=== PATIENT | male | born 1960 | race Caucasian/White ===

== ENCOUNTER 2017-04-01 14:27 | Emergency (ER) | payer BC ==
[~2017-04-01 14:27] MED LIST: Iopamidol 370 76% 100 ML VIAL ONE
[2017-04-01 14:56] LABS: #Basophils 0.1 thou/uL (0.0-0.2); #Eosinphils 0.3 thou/uL (0.0-0.7); #Lymphocytes 2.7 thou/uL (1.20-3.40); #Monocytes 1.1 thou/uL (0.11-0.59); #Neutrophils 10.7 thou/uL (1.40-6.50); %Basophils 0.6 % (0.0-1.0); %Lymphocytes 18.2 % (21.0-51.0); %Monocytes 7.5 % (0.0-10.0); Hematocrit 43.6 % (42.0-52.0); Mean Platelet Volume 7.6 fL (7.4-10.4); Red Blood Cell (RBC) Count 4.98 mill/uL (4.70-6.10); White Blood Cell (WBC) Count 14.9 thou/uL (4.8-10.8)
[2017-04-01 15:11] LABS: ALT (SGPT) 34 U/L (8-55); AST (SGOT) 24 U/L (5-34); Alkaline Phosphatase 70 U/L (40-150); Anion Gap 15 mmol/L (10-20); BUN (Urea Nitrogen) 11 mg/dL (8.4-25.7); Bilirubin, Total 0.4 mg/dL (0.2-1.2); Calc. Creatinine Clearance 0 mL/min (70-130); Calcium 9.4 mg/dL (7.8-10.44); Carbon Dioxide 25 mmol/L (22-29); Chloride 105 mmol/L (98-107); Estimated GFR-MDRD 78; Globulin 3.1 g/dL (2.4-3.5); Lipase 16 U/L (8-78); Protein, Total 7.1 g/dL (6.0-8.3)
[2017-04-01] MEDS ORDERED: Ondansetron HCl/PF 4 MG/2 ML Vial ONE (15:27)
[2017-04-01] MEDS ORDERED: Morphine 4 MG/ML Carpuject ONE (15:27)
[2017-04-01] MEDS ORDERED: Piperacillin/Tazobactam 3.375 GM VIAL ONE (16:06)
[2017-04-01] MEDS ORDERED: Sodium Chloride 0.9% 100 ML ONE (16:06)
--- NOTE | 2017-04-01 17:37 | CT ---
CT ABDOMEN AND PELVIS WITH IV CONTRAST: HISTORY: Left flank pain. FINDINGS: The lung bases are clear. Hyperdense stone is present within the dependent portion of the gallbladd er lumen. Each renal collecting system are ureter are decompressed without stone apparent. There are calcifications throughout the arterial structures. The liver is diffusely hypodense. Sma ll cysts arise from the cortex of the kidneys. There is calcification in the arterial structures. Diverticula arise from the left colon and sigmoid colon. Stranding is present within the fat machine try out setter ior to the left lower colon. No free air or free fluid are apparent. IMPRESSION: 1. Inflammation within the left paracolic fat is favored to be related to non-complicated diverticul itis. 2. Cholelithiasis. 3. Atherosclerosis. POS: EDWINA
--- NOTE | 2017-04-01 17:44 | RAD ---
TWO VIEWS OF THE CHEST: 04/01/2017 COMPARISON: 04/24/2010 HISTORY: Left flank pain, dyspnea. FINDINGS: Incompletely imaged cervical spine hardware is present. Heart and mediastinal contours are unremarkable. No pneumothorax, pleural fluid, focal consolidation, or alve olar edema. IMPRESSION: No acute findings. POS: KRISTIEH
[2017-04-01] MEDS ORDERED: Promethazine HCl 25 MG/ML VIAL ONE (18:29)
[2017-04-01] MEDS ORDERED: metroNIDAZOLE 500 MG/100 ML BAG ONE (19:11)
== END 2017-04-01 22:15 | disposition home or self-care (01) ==
LOC: SCSER 14:27
DX: K57.32 Diverticulitis of large intestine without perforation or abscess without bleeding (principal); K59.00 Constipation, unspecified; E78.5 Hyperlipidemia, unspecified; Z79.899 Other long term (current) drug therapy
CPT/HCPCS: 71020; 74177; 80053; 83690; 85025; 87040; 94760; 96361; 96365; 96366; 96367; 96375; J1170; J1956; J2270; J2405; J2543; J2550; J7050

== ENCOUNTER 2017-04-29 08:46 | Outpatient (CLI) | payer BC | END 2017-04-29 08:47 | disposition home or self-care (01) | LOC: BICULT 08:46 | PROVIDERS: ATTEND Family Medicine | DX: K57.92 Diverticulitis of intestine, part unspecified, without perforation or abscess without bleeding (principal); K80.20 Calculus of gallbladder without cholecystitis without obstruction; K76.0 Fatty (change of) liver, not elsewhere classified | CPT/HCPCS: 76700 ==

== ENCOUNTER 2019-02-19 08:45 | Inpatient (IN) | payer BC ==
[2019-02-19 09:35] VITALS: BMI 45.4
[2019-03-03] MEDS ORDERED: Midazolam HCl 2 mg/2 ml Vial ONE (06:21)
[2019-03-03] MEDS ORDERED: Fentanyl 100 MCG/2 ML VIAL ONE ×5 (06:21→10:12)
[2019-03-03] MEDS ORDERED: Tranexamic Acid 1,000 MG/10 ML VIAL ONE (06:21)
[2019-03-03] MEDS ORDERED: Sodium Chloride 0.9% 100 ML ONE (06:21)
[2019-03-03] MEDS ORDERED: HYDROmorphone 0.5 MG/0.5 ML SYRINGE ONE ×2 (06:59→09:14)
[2019-03-03] MEDS ORDERED: Promethazine HCl 25 MG/ML VIAL IM PRN ×3 (07:03→08:24)
[2019-03-03] MEDS ORDERED: Acetaminophen 325 MG TAB PO PRN (07:03)
[2019-03-03] MEDS ORDERED: HYDROcodone/Acetaminophen 10/325 mg Tablet PO PRN ×2 (07:03)
[2019-03-03] MEDS ORDERED: Zolpidem Tartrate 5 MG TAB PO PRN ×2 (07:03→07:17)
[2019-03-03] MEDS ORDERED: Ondansetron PF 4 MG/2 ML Vial IVP PRN ×2 (07:03→07:17)
[2019-03-03] MEDS ORDERED: diphenhydrAMINE 25 MG CAP PO PRN (07:03)
[2019-03-03] MEDS ORDERED: CAFFEINE PO PRN (07:04)
[2019-03-03] MEDS ORDERED: ASPIRIN PO PRN (07:04)
[2019-03-03] MEDS ORDERED: Ropivacaine HCl/PF 250 ML in Premix Bag 1 BAG NERVE BLCK SCH (07:17)
[2019-03-03] MEDS ORDERED: HYDROcodone/Acetaminophen 5/325 mg Tablet PO PRN (07:17)
[2019-03-03] MEDS ORDERED: traMADol HCl 50 MG TAB PO PRN ×2 (07:17)
[2019-03-03] MEDS ORDERED: Ondansetron HCl/PF 4 MG/2 ML Vial IVP PRN (08:24)
[2019-03-03] MEDS ORDERED: PACU-Morphine 4MG/ML VIAL SLOW IVP PRN (08:24)
[2019-03-03] MEDS ORDERED: HYDROmorphone 2 MG/ML VIAL SLOW IVP PRN (08:24)
[2019-03-03] MEDS ORDERED: Promethazine HCl 25 MG/ML VIAL SLOW IVP PRN (08:24)
[2019-03-03] MEDS ORDERED: Bupivacaine HCl 0.5%/Epinephrine 1:200,000/PF 30 ml Vial ONE (08:27)
--- NOTE | 2019-03-03 09:04 | RAD ---
EXAM: 2 views of the left knee HISTORY: Knee arthroplasty COMPARISON: None FINDINGS: No knee effusion is seen. The patient is status post knee arthroplasty without perihardware lucency or fracture. Air in the soft tissues is from recent surgery. IMPRESSION: Status post knee arthroplasty without evidence of complication.
[2019-03-03] MEDS ORDERED: Morphine 4 MG/ML VIAL ONE (10:47)
[2019-03-03] MEDS: Sodium Chloride 0.9% 1,000 ML IV SCH ×2 (11:28→17:52)
[2019-03-03] MEDS: Aspirin 81 mg Enteric Coated Tablet PO SCH ×2 (11:28→20:36)
[2019-03-03] MEDS ORDERED: Ketorolac Tromethamine 30 MG/ML VIAL IVP SCH (12:00)
[2019-03-03] MEDS: Fentanyl 100 MCG/2 ML VIAL IV PRN ×4 (12:59→22:40)
[2019-03-03] MEDS ORDERED: Ketorolac Tromethamine 30 MG/ML VIAL IM SCH (14:00)
[2019-03-03] MEDS: Ketorolac Tromethamine 30 MG/ML VIAL IVP SCH ×2 (14:10→20:36)
--- NOTE | 2019-03-03 15:20 | OP ---
DATE OF PROCEDURE: 03/03/2019 PREOPERATIVE DIAGNOSIS: Degenerative joint disease, left knee. POSTOPERATIVE DIAGNOSIS: Degenerative joint disease, left knee. PROCEDURE PERFORMED: Left total knee arthroplasty using [place] [employer] 6 femur, 6 tibia, 9 mm CS X3 polyethylene, and A35 patella. CAPSULE FILLING MACHINE OPERATOR: Caitlin Garcia PA-C ESTIMATED BLOOD LOSS: Minimal. SPECIMENS: None. DRAINS: None. COMPLICATIONS: None. PROCEDURE IN DETAIL: After informed consent was obtained in the preoperative holding area, the patient was taken to the operative suite where general anesthesia was induced. Once adequate level of general anesthesia was obtained, the patient was positioned and a well-padded tourniquet was placed around the left proximal thigh. The left lower extremity was then prepped and draped in the usual sterile fashion. Prior to exsanguination, a time-out was called and all members of the surgical team agreed upon site, surgeon, and patient. The extremity was then exsanguinated and the tourniquet was raised. A midline longitudinal incision was then made directly over the patella extending 2 fingerbreadths above the superior pole of the patella and 2 fingerbreadths inferior to the inferior patellar pole of the patella. Deeper subcutaneous layers were dissected sharply and local bleeding was controlled with Bovie electrocautery. A quad tendon longitudinal split was then made sharply and a median parapatellar arthrotomy was carried out both sharp and with Bovie electrocautery, carried down to 1 fingerbreadth medial to the tibial tubercle. The knee was then placed into flexion and the patella was everted nicely, and a copious fat pad ectomy was performed allowing for greater exposure of the tibia. The computer-assisted distal femoral fiducial was then placed and pinned firmly, and the distal femoral cutting guide was pinned firmly into place. The oscillating saw was then used to remove the appropriate amount of bone. The 4-in-1 cutting block was then placed on the distal femur and the oscillating saw was used to remove the appropriate amount of bone off the anterior, posterior, and chamfer cuts. After completion of bone cuts, the anterior cruciate ligament was resected sharply and the posterior cruciate ligament retractor was placed and the tibia was subluxed for better exposure. Partial meniscectomies were carried out, and the tibial computer-assisted fiducial was pinned, and the cutting guide was placed. Oscillating saw was then used to remove the bone, with Hohmann retractors used to take care and protect the collateral ligaments. After the tibial resection was performed, a laminar kiln pusher was placed in between the freshened bone cuts. The knee placed at 90 degrees and further bilateral meniscectomies were carried out, and the curved osteotome and curettage were used to remove any excess bone spurs in the posterior compartment. The trial femoral component, tibial baseplate were placed with the appropriate polyethylene trial insert with an appropriate polyethylene spacer and patellar button. The knee was taken through full range of motion with flexion and extension from 0 to 90 degrees and patellar broach squarely in the trochlea without any squinting or subluxation noted. The knee was also stable to varus and valgus stressing at 0, 15, 45, and 90 degrees of flexion. The drawer was negative. All trial components were then removed and the keel punch was used to provide the appropriate defect in the tibia with a mallet. The freshened bone cuts were copiously irrigated with pulsatile lavage of about 1.5 L to remove all excess debris. The freshened bone cuts were then dried with suction and lap sponge. The knee was placed in flexion and retractors were placed to provide access to all bone cuts. Tobramycin-impregnated methyl methacrylate cement was then placed on the freshened bone cuts and implants which were malleted firmly into place. Curettage and [place] elevators were used to remove any excess bone cement. The knee was placed into full extension and the patellar button was placed under compression, and the cement was allowed to cure. Once completed, the components were again taken through full range of motion and copious irrigation of the knee was carried out with another liter of normal saline. All components were inspected fully with full range of motion and varus and valgus stressing. There was no laxity noted and full extension was observed clinically. Primary closure was accomplished with #2 interrupted Vicryl stitch of the arthrotomy defect. This was oversewn with a #2 running Quill barbed stitch. The gravitational platelet system was then injected into the arthrotomy prior to closure. The subcutaneous layer was then closed with a running 0 barbed Monocryl stitch and skin closure accomplished with a running subcuticular 3-0 Monocryl barbed Quill stitch and augmented with cement on the skin. Tourniquet was lowered. Good spontaneous return of distal pulses was noted clinically and a sterile dressing was applied to the incision. The procedure was terminated without any complications. The patient was awakened in the operative suite and the patient was taken to the recovery room in stable condition. Job ID: [id number]
[2019-03-03] MEDS: CEFAZOLIN 2 GM in Premix Bag 1 BAG IVPB SCH (16:31)
--- NOTE | 2019-03-03 19:04 | CON ---
DATE OF CONSULTATION: CONSULTING PHYSICIAN: Dr. Rosa. REASON FOR CONSULTATION: Postoperative medical management. HISTORY OF PRESENT ILLNESS: This patient is a 58-year-old male with some obesity and degenerative joint disease. He is status post left knee replacement. Currently, he is doing well other than having a bit of mild postoperative nausea, for which he has received medication. He says generally he has been in good health other than being overweight and has been very functional up until this surgery other than his significant limitations from his osteoarthritis in the knee. REVIEW OF SYSTEMS: The patient has had normal sleep, appetite, bowel and bladder habits, has arthritic pains. All other systems reviewed. All pertinent positives and negatives were noted. 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 PAST SURGICAL HISTORY: Left knee arthroscopy, ACDF at C5-C6 in 2013, and right knee arthroscopy. FAMILY HISTORY: Father at 68 with heart disease. His mother is living. She also has some heart disease as well as some asthma and arthritic conditions. SOCIAL HISTORY: The patient is a nonsmoker, nondrinker, and nondrug user. He is . He is full code. is his surrogate. HOME MEDICATIONS: Include 1. Omeprazole 20 mg daily. 2. Crestor 20 mg q.h.s. 3. BC powder p.r.n. 4. Ibuprofen p.r.n. PHYSICAL EXAMINATION: VITAL SIGNS: Temperature is 98.2, pulse 105, respirations 16, and O2 saturations 94% on room air, and blood pressure is 145/81. GENERAL APPEARANCE: Age-appropriate obese male, in no distress. Awake, alert, oriented, pleasant, cooperative. HEENT: Pupils slightly constricted, but reactive. He has no OP lesions. Large tongue. Small oral airway. NECK: Thick, supple, symmetric. HEART: Regular rate and rhythm without murmurs, gallops, or rubs. LUNGS: Clear to auscultation bilaterally with good chest wall expansion and air exchange. ABDOMEN: Soft, nontender, and nondistended. Positive bowel sounds. No masses. No organomegaly. EXTREMITIES: No cyanosis, clubbing, or edema. Left knee has a postop dressing. SCDs are in place. Fingers are warm to touch. Good capillary refill. NEUROLOGICAL: He is awake and alert. Cognitively intact. There is normal sensation throughout. PSYCH: Normal affect and behavior. LABORATORY DATA: No lab has been obtained during this admission. IMPRESSION AND PLAN: 1. Postop left knee replacement, doing well presently. Continue with the postop course of care per Ortho. 2. Hyperlipidemia. Continue with his p.o. rosuvastatin at his home dose. 3. History of reflux. Continue with his omeprazole dose. 4. Obstructive sleep apnea. Continue with his home regimen. 5. We will continue to follow for any medical management issues that may arise. Job ID: [id number]
[2019-03-03] MEDS: Rosuvastatin 20 MG TAB PO SCH (20:36)
[2019-03-04] MEDS: Fentanyl 100 MCG/2 ML VIAL IV PRN ×2 (00:48→06:18)
[2019-03-04] MEDS: CEFAZOLIN 2 GM in Premix Bag 1 BAG IVPB SCH (00:49)
[2019-03-04] MEDS: Ketorolac Tromethamine 30 MG/ML VIAL IVP SCH ×4 (02:07→20:13)
[2019-03-04] MEDS: Sodium Chloride 0.9% 1,000 ML IV SCH ×2 (03:12→15:19)
[2019-03-04 05:23] LABS: Hemoglobin 13.1 g/dL (14.0-18.0); Mean Corpuscular HGB CONC 33.8 g/dL (32.0-36.0); Mean Corpuscular Hemoglobin 31.4 pg (27.0-31.0); Mean Platelet Volume 7.8 fL (7.4-10.4); Platelet Count 271 thou/uL (130-400); RBC Distribution Width 12.1 % (11.5-14.5); Red Blood Cell (RBC) Count 4.16 mill/uL (4.70-6.10); White Blood Cell (WBC) Count 13.2 thou/uL (4.8-10.8)
[2019-03-04] MEDS: Senokot S 8.6-50 MG TAB PO SCH ×2 (08:02→20:14)
[2019-03-04] MEDS: Multivitamin W/ Minerals 1 TAB PO SCH (08:03)
[2019-03-04] MEDS: Ferrous Gluconate 324 MG TAB PO SCH ×2 (08:03→20:14)
[2019-03-04] MEDS: Aspirin 81 mg Enteric Coated Tablet PO SCH ×2 (08:03→20:14)
[2019-03-04] MEDS: HYDROcodone/Acetaminophen 5/325 mg Tablet PO PRN ×4 (08:15→21:27)
--- NOTE | 2019-03-04 13:26 | PRG ---
DATE OF SERVICE: 03/04/2019 SUBJECTIVE: Luis Enrique is a 58-year-old male, postop day #1, from left total knee arthroplasty. He is doing very well. He is comfortable and is happy with his postop results at this point. OBJECTIVE: VITAL SIGNS: Temperature 97.8, pulse 105, respiratory rate 18, and blood pressure 143/85. GENERAL: He is alert and oriented to person, place, time, situation. NEUROLOGIC: Grossly nonfocal. Responsive and appropriate with examiner. His incision is clean. No erythema. No strike-through. He is neurovascularly intact in the left lower extremity. LABORATORY DATA: Hemoglobin and hematocrit 13.1 and 38.6. IMPRESSION: A 58-year-old male, postop day #1, left total knee arthroplasty, doing well. PLAN: Continue current care. Probable discharge to home tomorrow. Job ID: [id number]
[2019-03-04] MEDS: Rosuvastatin 20 MG TAB PO SCH (20:14)
[2019-03-05] MEDS: Sodium Chloride 0.9% 1,000 ML IV SCH ×2 (01:00→09:54)
[2019-03-05] MEDS: HYDROcodone/Acetaminophen 5/325 mg Tablet PO PRN ×4 (01:51→13:42)
[2019-03-05] MEDS: Ketorolac Tromethamine 30 MG/ML VIAL IVP SCH ×2 (01:52→08:15)
[2019-03-05 06:56] LABS: Hemoglobin 12.4 g/dL (14.0-18.0); Mean Corpuscular HGB CONC 33.8 g/dL (32.0-36.0); Mean Corpuscular Hemoglobin 31.9 pg (27.0-31.0); Mean Corpuscular Volume 94.3 fL (78.0-98.0); Mean Platelet Volume 7.6 fL (7.4-10.4); Platelet Count 252 thou/uL (130-400); Red Blood Cell (RBC) Count 3.89 mill/uL (4.70-6.10); White Blood Cell (WBC) Count 10.6 thou/uL (4.8-10.8)
[2019-03-05] MEDS: Aspirin 81 mg Enteric Coated Tablet PO SCH (08:15)
[2019-03-05] MEDS: Senokot S 8.6-50 MG TAB PO SCH (08:16)
[2019-03-05] MEDS: Multivitamin W/ Minerals 1 TAB PO SCH (08:16)
[2019-03-05] MEDS: Ferrous Gluconate 324 MG TAB PO SCH (08:16)
[2019-03-05 11:51] VITALS: BP 119/79; TEMP 97.9
== END 2019-03-05 13:58 | disposition home or self-care (01) | DRG 470 ==
LOC: SURG A 03-03 05:35 → SJJU 03-03 11:24
PROVIDERS: ADMIT Orthopaedic Surgery; ATTEND Orthopaedic Surgery
PROC: 0SRD0J9 Replacement of Left Knee Joint with Synthetic Substitute, Cemented, Open Approach (ICD-10-PCS; principal; 2019-03-03)
PROC: 8E0YXBZ Computer Assisted Procedure of Lower Extremity (ICD-10-PCS; 2019-03-03)
DX: M17.12 Unilateral primary osteoarthritis, left knee (principal); Z68.42 Body mass index [BMI] 45.0-49.9, adult; E66.9 Obesity, unspecified; G47.33 Obstructive sleep apnea (adult) (pediatric); E78.5 Hyperlipidemia, unspecified; K21.9 Gastro-esophageal reflux disease without esophagitis; R11.0 Nausea; Z88.5 Allergy status to narcotic agent; Z98.1 Arthrodesis status; Z79.899 Other long term (current) drug therapy
CPT/HCPCS: 36415; 85027; J0670; J0690; J1170; J1885; J2250; J2270; J2405; J2550; J2795; J3010; J3490

== ENCOUNTER 2019-02-19 08:46 | Outpatient (CLI) | payer BC ==
[2019-02-19 11:06] LABS: #Basophils 0.1 thou/uL (0.0-0.2); #Eosinphils 0.2 thou/uL (0.0-0.7); #Lymphocytes 2.7 thou/uL (1.20-3.40); #Monocytes 0.8 thou/uL (0.11-0.59); #Neutrophils 3.9 thou/uL (1.40-6.50); %Eosinophils 3.2 % (0.0-10.0); %Lymphocytes 34.5 % (21.0-51.0); %Monocytes 10.9 % (0.0-10.0); %Neutrophils 50.4 % (42.0-75.0); Hemoglobin 14.2 g/dL (14.0-18.0); Mean Corpuscular HGB CONC 33.6 g/dL (32.0-36.0); Mean Corpuscular Volume 92.1 fL (78.0-98.0); Mean Platelet Volume 8.1 fL (7.4-10.4); Platelet Count 258 thou/uL (130-400); RBC Distribution Width 12.2 % (11.5-14.5); Red Blood Cell (RBC) Count 4.58 mill/uL (4.70-6.10); White Blood Cell (WBC) Count 7.8 thou/uL (4.8-10.8)
[2019-02-19 11:27] LABS: Anion Gap 11 mmol/L (10-20); BUN (Urea Nitrogen) 17 mg/dL (8.4-25.7); Calc. Creatinine Clearance 0 mL/min (70-130); Calcium 9.2 mg/dL (7.8-10.44); Carbon Dioxide 26 mmol/L (22-29); Chloride 104 mmol/L (98-107); Estimated GFR-MDRD 77; Glucose 85 mg/dL (70-105); Sodium 137 mmol/L (136-145)
[2019-02-19 11:57] LABS: INR-International Normal Ratio 0.9; Prothrombin Time 12.6 SEC (12.0-14.7)
--- NOTE | 2019-02-19 20:38 | EKG ---
Test Reason : Blood Pressure : / mmHG Vent. Rate : 080 BPM Atrial Rate : 080 BPM P-R Int : 170 ms QRS Dur : 098 ms QT Int : 396 ms P-R-T Axes : 065 035 038 degrees QTc Int : 456 ms Normal sinus rhythm with sinus arrhythmia Normal ECG When compared with ECG of 08-FEB-2016 13:17, No significant change was found Confirmed by STEFANIA MENESES, SJade ([id number]) on 02/19/2019 8:37:54 PM Referred By: DIPIKA Confirmed By:DR. Vale AGUIAR MD
== END 2019-02-19 08:47 | disposition home or self-care (01) ==
LOC: LABBT 08:46
PROVIDERS: ATTEND Orthopaedic Surgery
DX: Z01.818 Encounter for other preprocedural examination (principal); M17.12 Unilateral primary osteoarthritis, left knee
CPT/HCPCS: 80048; 85025; 85610; 87081; 93005; 93010

== ENCOUNTER 2021-09-20 09:10 | Outpatient (CLI) | payer BC ==
[2021-09-20 10:32] LABS: #Monocytes 1.2 10x3/uL (0.0-1.1); #Neutrophils 9.6 10x3/uL (1.5-8.4); %Basophils 0.1 % (0.0-2.0); %Eosinophils 0.1 % (0.0-6.0); %Lymphocytes 19.3 % (18.0-47.0); %Monocytes 8.8 % (0.0-10.0); %Neutrophils 71.5 % (40.0-75.0); Hemoglobin 14.4 g/dL (13.5-17.5); Mean Corpuscular HGB CONC 33.3 g/dL (32.0-36.0); Mean Corpuscular Hemoglobin 30.7 pg (27.0-33.0); Mean Corpuscular Volume 92.3 fl (81.2-95.1); Mean Platelet Volume 9.9 fl (7.4-10.4); Platelet Count 317 10x3/uL (150-450); RBC Distribution Width 13.7 % (11.5-14.5); Red Blood Cell (RBC) Count 4.69 10x6/uL (4.32-5.72); White Blood Cell (WBC) Count 13.5 10x3/uL (3.5-10.5)
[2021-09-20 10:42] LABS: INR-International Normal Ratio 0.9; Prothrombin Time 10.3 sec (9.5-12.1)
[2021-09-20 10:45] LABS: Anion Gap 13 mmol/L (10-20); BUN (Urea Nitrogen) 19 mg/dL (8.4-25.7); Calc. Creatinine Clearance 0 mL/min (70-130); Calcium 10.3 mg/dL (7.8-10.44); Carbon Dioxide 25 mmol/L (23-31); Chloride 104 mmol/L (98-107); Glucose 114 mg/dL (80-115); Potassium 4.4 mmol/L (3.5-5.1); Sodium 138 mmol/L (136-145)
[2021-09-20 21:11] LABS: SARS-CoV-2 PCR by NAA Not Detected (NotDetected)
== END 2021-09-20 09:11 | disposition home or self-care (01) ==
LOC: LABBT 09:10
PROVIDERS: ATTEND Orthopaedic Surgery
DX: Z01.818 Encounter for other preprocedural examination (principal); Z20.822 Contact with and (suspected) exposure to COVID-19
CPT/HCPCS: 80048; 85025; 85610; 87081; 93005; 93010; U0003; U0005

== ENCOUNTER 2021-09-25 06:12 | Observation (INO) | payer BC ==
[2021-09-20 12:04] VITALS: BMI 47.3
[2021-09-25] MEDS ORDERED: Tranexamic Acid 1,000 MG/10 ML VIAL ONE (07:02)
[2021-09-25] MEDS ORDERED: Sodium Chloride 0.9% 100 ML ONE (07:02)
[2021-09-25] MEDS ORDERED: traMADol HCl 50 MG TAB PO PRN ×3 (07:09→08:09)
[2021-09-25] MEDS ORDERED: Acetaminophen 325 MG TAB PO PRN (07:09)
[2021-09-25] MEDS ORDERED: Promethazine HCl 25 MG/ML VIAL IM PRN ×2 (07:09→08:15)
[2021-09-25] MEDS ORDERED: Ondansetron PF 4 MG/2 ML Vial IVP PRN ×2 (07:09→08:15)
[2021-09-25] MEDS ORDERED: diphenhydrAMINE 25 MG CAP PO PRN (07:09)
[2021-09-25] MEDS ORDERED: Fentanyl 100 MCG/2 ML VIAL SLOW IVP PRN ×2 (07:09)
[2021-09-25] MEDS ORDERED: Zolpidem Tartrate 5 MG TAB PO PRN ×2 (07:09→08:15)
[2021-09-25] MEDS ORDERED: Bupivacaine PF 0.5% 30 ML VIAL ONE (07:12)
[2021-09-25] MEDS ORDERED: VANCOMYCIN 2 GRAM/500 ML BAG 2 GM in Premix Bag 1 BAG IVPB SCH (07:15)
[2021-09-25] MEDS ORDERED: Midazolam HCl 2 mg/2 ml Vial ONE (07:44)
[2021-09-25] MEDS ORDERED: Fentanyl 100 MCG/2 ML VIAL ONE ×3 (07:44→10:54)
[2021-09-25] MEDS ORDERED: ceFAZolin (BATCH) 2 GM/100 ML BAG ONE (07:48)
[2021-09-25] MEDS ORDERED: Ropivacaine 0.5% HCl/PF (150 MG/30 ML VIAL) ONE (08:00)
[2021-09-25] MEDS ORDERED: Fentanyl 100 MCG/2 ML VIAL IV PRN (08:08)
[2021-09-25] MEDS ORDERED: Ropivacaine 0.2% 550 ML 550 ML NERVE BLCK SCH (08:15)
[2021-09-25] MEDS ORDERED: Ondansetron PF 4 MG/2 ML Vial ONE (08:30)
[2021-09-25] MEDS ORDERED: PHENYLEPHRINE-NS 100 MCG/ML 10 ML SYRINGE ONE (08:30)
[2021-09-25] MEDS ORDERED: Dexamethasone 20 MG/5 ML VIAL ONE (08:30)
[2021-09-25] MEDS ORDERED: Ketorolac Tromethamine 30 MG/ML VIAL ONE (08:30)
[2021-09-25] MEDS ORDERED: Lidocaine 1% PF 5 ML VIAL ONE (08:30)
[2021-09-25] MEDS ORDERED: PROPOFOL 200 MG/20 ML VIAL ONE (08:30)
[2021-09-25] MEDS ORDERED: fentaNYL Citrate/PF 100 MCG/2 ML SYRINGE ONE (09:05)
[2021-09-25] MEDS: Aspirin 81 mg Enteric Coated Tablet PO SCH ×2 (11:45→21:20)
[2021-09-25] MEDS: Ferrous Gluconate 324 MG TAB PO SCH ×2 (11:45→21:20)
[2021-09-25] MEDS: Multivitamin W/ Minerals 1 TAB PO SCH (11:45)
[2021-09-25] MEDS: Senokot S 8.6-50 MG TAB PO SCH ×2 (11:45→21:20)
[2021-09-25] MEDS: Ketorolac Tromethamine 30 MG/ML VIAL IVP SCH ×2 (13:19→17:24)
[2021-09-25] MEDS: ceFAZolin (BATCH) 2 GM in Premix Bag 1 BAG IVPB SCH ×2 (13:19→21:21)
[2021-09-25] MEDS: traMADol HCl 50 MG TAB PO SCH ×2 (13:20→17:25)
[2021-09-25] MEDS: Acetaminophen 500 MG TAB PO SCH ×2 (13:20→17:25)
[2021-09-25] MEDS: Sodium Chloride 0.9% 1,000 ML IV SCH ×2 (13:21→17:23)
[2021-09-25] MEDS ORDERED: Ketorolac Tromethamine 30 MG/ML VIAL IVP SCH (14:00)
[2021-09-25] MEDS ORDERED: Rosuvastatin 20 MG TAB PO SCH (21:00)
[2021-09-26] MEDS: traMADol HCl 50 MG TAB PO SCH ×3 (00:05→11:16)
[2021-09-26] MEDS: Acetaminophen 500 MG TAB PO SCH ×3 (00:05→11:17)
[2021-09-26] MEDS: Ketorolac Tromethamine 30 MG/ML VIAL IVP SCH ×3 (00:06→11:15)
[2021-09-26] MEDS: Sodium Chloride 0.9% 1,000 ML IV SCH (00:54)
[2021-09-26 05:42] LABS: Hemoglobin 12.8 g/dL (14.0-18.0); Mean Corpuscular HGB CONC 31.6 g/dL (32.0-36.0); Mean Corpuscular Hemoglobin 31.5 pg (27.0-31.0); Mean Corpuscular Volume 99.8 fL (78.0-98.0); Mean Platelet Volume 7.1 fL (7.4-10.4); Platelet Count 266 thou/uL (130-400); RBC Distribution Width 12.7 % (11.5-14.5); Red Blood Cell (RBC) Count 4.05 mill/uL (4.70-6.10); White Blood Cell (WBC) Count 16.3 thou/uL (4.8-10.8)
[2021-09-26] MEDS: Multivitamin W/ Minerals 1 TAB PO SCH (08:31)
[2021-09-26] MEDS: Aspirin 81 mg Enteric Coated Tablet PO SCH (08:31)
[2021-09-26] MEDS: Senokot S 8.6-50 MG TAB PO SCH (08:31)
[2021-09-26] MEDS: Ferrous Gluconate 324 MG TAB PO SCH (08:31)
[2021-09-26 11:49] VITALS: BP 148/85; TEMP 98
== END 2021-09-26 11:24 | disposition home or self-care (01) ==
LOC: SDC 06:12 → SURG B 07:10 → SDC 12:43 → SURG B 12:43
PROVIDERS: ADMIT Orthopaedic Surgery; ATTEND Orthopaedic Surgery
PROC: 0SRC0J9 Replacement of Right Knee Joint with Synthetic Substitute, Cemented, Open Approach (ICD-10-PCS; principal; 2021-09-25)
PROC: 8E0YXBZ Computer Assisted Procedure of Lower Extremity (ICD-10-PCS; 2021-09-25)
PROC: 3E0T3BZ Introduction of Anesthetic Agent into Peripheral Nerves and Plexi, Percutaneous Approach (ICD-10-PCS; 2021-09-25)
DX: M17.11 Unilateral primary osteoarthritis, right knee (principal); G47.33 Obstructive sleep apnea (adult) (pediatric); E78.00 Pure hypercholesterolemia, unspecified; E78.5 Hyperlipidemia, unspecified; Z79.899 Other long term (current) drug therapy; Z88.5 Allergy status to narcotic agent; Z88.8 Allergy status to other drugs, medicaments and biological substances; Z98.1 Arthrodesis status; Z96.652 Presence of left artificial knee joint
CPT/HCPCS: 36415; 85027; 96374; 96375; 96376; A4306; C1713; C1776; G0378; J0690; J1100; J1885; J2250; J2405; J2704; J2795; J3010; J3370; J3490; J7050; S0020